=== PATIENT | male | born 1945 | race Two or more races ===

== ENCOUNTER 2018-02-05 22:33 | Inpatient (IN) | payer MEDICARE, MEDICAID ==
[~2018-02-05] VITALS: Ht 378.5 cm; Wt 64.0 kg
--- NOTE | 2018-02-05 23:44 | NUR ---
SUSHIL 204-1
[2018-02-06] VITALS (27 sets, daily range): BP systolic 53–163; BP diastolic 26–131
--- NOTE | 2018-02-06 00:39 | NUR ---
PT EMERALD "FROM [facility] HERE FOR PSYCH EVL.. BIT A STAFF MEMBER" PT AO HX DEMENTIA. RR EVEN AND UNLABORED. NO SOB NOTED. NAD NOTED. NO NVD AT THIS TIME. PT GOWNED AND PLACED ON MONITOR WAITING FOR MD OLIVA.
[2018-02-06 01:12] LABS: BASOPHILS % (AUTO) 0.5 % (0.0-2.0); EOSINOPHILS % (AUTO) 1.5 % (0.0-6.0); HEMATOCRIT 41 % (39-51); HEMOGLOBIN 13.7 g/dL (13.5-17.5); LYMPHOCYTES # (AUTO) 1.2 /CMM (0.8-4.8); LYMPHOCYTES % (AUTO) 24.9 % (20.0-44.0); MEAN CORPUSCULAR HGB CONC 33 g/dl (31.0-36.0); MEAN CORPUSCULAR VOLUME 97 fL (80-96); MONOCYTES # (AUTO) 0.4 /CMM (0.1-1.30); MONOCYTES % (AUTO) 7.4 % (2.0-12.0); NEUTROPHILS # (AUTO) 3.3 /CMM (1.8-8.9); NEUTROPHILS % (AUTO) 65.7 % (43.0-81.0); PLATELET COUNT (AUTO) 285 /CMM (150-450); RDW COEFFICIENT OF VARIATION 13.9 (11.5-15.0); RED BLOOD CELL COUNT(AUTO) 4.26 MIL/uL (4.5-6.0)
[2018-02-06 01:23] LABS: CALCIUM, SERUM 8.4 mg/dL (8.5-10.1); CARBON DIOXIDE 25 mmol/L (21-32); CHLORIDE 106 mmol/L (98-107); GLUCOSE 101 mg/dL (74-106); POTASSIUM 3.8 mmol/L (3.5-5.1); SODIUM SERUM 141 mmol/L (136-145); UREA NITROGEN, BLOOD 20 mg/dL (7-18)
[2018-02-06 01:29] LABS: ALANINE AMINOTRANSFERASE 19 U/L (12-78); ALBUMIN 3.2 g/dL (3.4-5.0); ALCOHOL, BLOOD < 3 mg/dL (0-0); ALKALINE PHOSPHATASE 52 U/L (46-116); ASPARTATE AMINOTRANSFERASE 11 U/L (15-37); BILIRUBIN,DIRECT 0.1 mg/dL (0.0-0.2); BILIRUBIN,TOTAL 0.4 mg/dL (0.2-1.0); TOTAL PROTEIN, SERUM 6.9 g/dL (6.4-8.2)
[2018-02-06 01:31] LABS: ACETAMINOPHEN 0 ug/ml (10-30); SALICYLATE 0.6 mg/dL (2.8-20.0)
--- NOTE | 2018-02-06 01:39 | NUR ---
PT TO CT.
[2018-02-06] MEDS ORDERED: ONDANSETRON HCL/PF 4 MG/2 ML VIAL IVP PRN (05:30)
--- NOTE | 2018-02-06 05:32 | NUR ---
REFER TO PAPER CHARTING. PT TRANSFERRED TO ICU 260 PER ACLS PROTOCOL. ADMITTED UNDER FOLLOW UP REP MELISSA FOR SUBARACHNOID HEMORRHAGE. DR. ZEE ON BOARD.
[2018-02-06] MEDS: IV NS 0.9% 1,000 ML IV PRN ×2 (06:19→21:28)
[2018-02-06] MEDS ORDERED: IV NS 0.9% 1,000 ML BAG IV PRN (06:30)
[2018-02-06] MEDS ORDERED: OLAN2.5T3 PO (07:53)
[2018-02-06] MEDS ORDERED: AMIO200T4 PO (07:53)
[2018-02-06] MEDS ORDERED: CLOP75TA15 PO (07:53)
[2018-02-06] MEDS ORDERED: DONE10TA44 PO (07:53)
[2018-02-06] MEDS ORDERED: BISO5TAB2 PO (07:53)
[2018-02-06] MEDS ORDERED: MULT-447 PO (07:53)
[2018-02-06] MEDS ORDERED: IPRA3AMP23 IH ×2 (07:53)
[2018-02-06] MEDS: PANTOPRAZOLE 40 MG VIAL IV SCH (08:42)
[2018-02-06] MEDS ORDERED: IOHEXOL-350 100 ML VIAL IV ONE (13:15)
--- NOTE | 2018-02-06 18:27 | NUR ---
RN CLOSING NOTES: PT TOLERATED PUREED HONEY THICK LIQUID DIET AND ABLE TO FEED SELF BUT NEEDS TO BE CONSTANTLY REMINDED TO SLOW DOWN. PT WAS CALM AND SLIGHTLY COOPERATIVE WHEN DAUGHTER WAS AT THE BEDSIDE UNTIL ABOUT 1700 WHEN HE BECAME AGITATED. PT AT THE MOMENT IS VERY RESTLESS AND WANTS TO GET OOB. PT ASSISTED TO TOILET, WALKED WITH 2 PEOPLE ASSIST, HAD BM AND VOIDED. BILATERAL WRIST RESTRAINTS RE INITIATED. BED LOW AND LOCKED. CALL LIGHT WITHIN REACHED. WILL CONTINUE TO MONITOR.
[2018-02-06] MEDS: LORAZEPAM INJ 2 MG/ML VIAL IV PRN (18:45)
[2018-02-07] VITALS (32 sets, daily range): BP systolic 84–159; BP diastolic 50–110
[2018-02-07] MEDS: LORAZEPAM INJ 2 MG/ML VIAL IV PRN ×2 (01:58→20:36)
[2018-02-07 04:28] LABS: BASOPHILS % (AUTO) 0.5 % (0.0-2.0); EOSINOPHILS % (AUTO) 1.9 % (0.0-6.0); HEMATOCRIT 43 % (39-51); HEMOGLOBIN 14.5 g/dL (13.5-17.5); LYMPHOCYTES # (AUTO) 1.5 /CMM (0.8-4.8); LYMPHOCYTES % (AUTO) 20.9 % (20.0-44.0); MEAN CORPUSCULAR HGB CONC 34 g/dl (31.0-36.0); MEAN CORPUSCULAR VOLUME 96 fL (80-96); MONOCYTES # (AUTO) 0.5 /CMM (0.1-1.30); MONOCYTES % (AUTO) 6.4 % (2.0-12.0); NEUTROPHILS # (AUTO) 5.1 /CMM (1.8-8.9); NEUTROPHILS % (AUTO) 70.3 % (43.0-81.0); PLATELET COUNT (AUTO) 266 /CMM (150-450); RDW COEFFICIENT OF VARIATION 13.9 (11.5-15.0); RED BLOOD CELL COUNT(AUTO) 4.47 MIL/uL (4.5-6.0); WHITE BLOOD COUNT (AUTO) 7.3 K/uL (4.3-11.0)
[2018-02-07 04:52] LABS: ALANINE AMINOTRANSFERASE 19 U/L (12-78); ALBUMIN 3.1 g/dL (3.4-5.0); ALKALINE PHOSPHATASE 51 U/L (46-116); ASPARTATE AMINOTRANSFERASE 12 U/L (15-37); BILIRUBIN,TOTAL 0.7 mg/dL (0.2-1.0); CALCIUM, SERUM 8.4 mg/dL (8.5-10.1); CARBON DIOXIDE 26 mmol/L (21-32); CHLORIDE 107 mmol/L (98-107); GLUCOSE 97 mg/dL (74-106); MAGNESIUM 1.9 mg/dL (1.8-2.4); PHOSPHORUS 3.1 mg/dL (2.5-4.9); SODIUM SERUM 142 mmol/L (136-145); TOTAL PROTEIN, SERUM 6.4 g/dL (6.4-8.2); UREA NITROGEN, BLOOD 11 mg/dL (7-18)
[2018-02-07 04:55] LABS: CHOLESTEROL 133 mg/dL (<200); HDL CHOLESTEROL 44 mg/dL (40-60); LDL 84 mg/dL (0-99); TRIGLYCERIDES 43 mg/dL (30-150)
[2018-02-07] MEDS: DIGOXIN INJ 0.5 MG/2 ML AMPUL IV SCH ×3 (06:16→17:35)
--- NOTE | 2018-02-07 06:41 | NUR ---
RN NOTE PT REMAINS IN NO ACUTE DISTRESS IN BED. PT DID NOT HAVE ANY SIGNIFICANT CHANGE IN CONDITION DURING SHIFT. FREQUENT NEURO CHECKS PERFORMED WITH NO CHANGE. PT CONTINUES TO BE IN CONTROLLED AFIB @ 80-90. ALL NEEDS MET, ALL ORDERS CARRIED OUT. WILL ENDORSE CARE TO AM RN FOR CONTINUITY OF CARE.
--- NOTE | 2018-02-07 07:12 | NUR ---
RN INITIAL NOTES: REC'D PT ASLEEP ON BED, EASILY AROUSABLE, A/OX 1, NOT IN ANY DISTRESS. ON ROOM AIR, NO SOB. ON TELEMONITOR, CONTROLLED AFIB. HAS 2 IV LINE ACCESS: R AC G20 & LFA G20, BOTH PATENT & INTACT W/ NO S/SX OF INFECTION. HAS B SOFT WRIST RESTRAINTS ON D/T RESTLESSNESS. PROVIDED COMFORT & SAFETY ENVIRONMENT. BED KEPT LOW & IN LOCKED POS. CALL LIGHT PLACED W/IN REACH. WILL CONTINUE TO MONITOR & ATTEND PT NEEDS. WILL REORIENT PT.
[2018-02-07] MEDS: DILTIAZEM HCL CD 240 MG PO SCH (08:12)
[2018-02-07] MEDS: PANTOPRAZOLE 40 MG VIAL IV SCH (08:12)
--- NOTE | 2018-02-07 08:30 | NUR ---
RN NOTES: PT SEEN & EXAMINED BY DR. BLACKWOOD. 0930h PT SEEN & EXAMINED BY DR. LESLIE.
--- NOTE | 2018-02-07 10:39 | NUR ---
RN NOTES: PT'S DAUGHTER CAME & ABLE TO ASSIST PT W/ ADLS. PT WAS NOT COMBATIVE WHILE DTR AT BEDSIDE. PT ABLE TO AMBULATE W/ ASSISTANCE
--- NOTE | 2018-02-07 11:11 | NUR ---
RN NOTES: PT WAS SEEN BY COMPOSITION ROLL MAKER AND CUTTER ES, WAS ABLE TO SPOKE W/ PT DTR EVELYN AT BEDSIDE.
[2018-02-07] MEDS: IV NS 0.9% 1,000 ML IV PRN (11:22)
--- NOTE | 2018-02-07 12:59 | NUR ---
RN NOTES: PT SEEN BY DR. BLACKWOOD, ALL CONCERNS OF THE DAUGHTER WAS ANSWERED BY .
[2018-02-07] MEDS: busPIRone 5 MG TABLET PO SCH (17:56)
--- NOTE | 2018-02-07 18:58 | NUR ---
RN NOTES: PT TRANSFERRED VIA BED TO MS 115/1 ORDERED ACCOMPANIED BY 2 RN. PT DOESN'T HAVE ANY PERSONAL BELONGINGS. REPORT GIVEN TO ADIEL JETT. NEW IV LINE INSERTED ON RFA G20, PATENT & INTACT W/ NO S/SX OF INFECTION/INFILTRATION NOTED. LEFT VM TO DTR EVELYN RE: TRANSFER.
--- NOTE | 2018-02-07 19:00 | NUR ---
RN NOTE RECEIVED REPORT FROM [place] ICU, RECEIVED PATIENT ASLEEP, CALM AND COLLECTIVE. BREATHING EVEN AND UNLABORED WITH NO DISTRESS NOTED. IV SITE INTACT AND PATENT RUNNING NS 75@ML/HR, WILL ENDORSE TO NEXT SHIFT TO CONTINUE CONTINUITY OF CARE.
--- NOTE | 2018-02-07 19:55 | NUR ---
RN OPENING NOTES RECEIVED REPORT FROM ADIEL JETT. PATIENT A/A/O X1, [place]-SPEAKING BUT ABLE TO MAKE SOME NEEDS KNOWN & STATE PAIN. BREATHING EVEN & UNLABORED, TOLERATING ROOM AIR. SKIN WARM, DRY & INTACT W/ PULSES PRESENT. RIGHT FA IV #20 INTACT & PATENT W/ DRESSING CDI & IVF NS INFUSING WELL @ 75 ML/HR. DENIES ANY PAIN OR DISCOMFORT @ THIS TIME. SAFETY MEASURES MAINTAINED W/ SITTER @ BEDSIDE. PATIENT RESTING COMFORTABLY IN BED. WILL CONTINUE TO MONITOR.
[2018-02-08] MEDS: IV NS 0.9% 1,000 ML IV PRN ×2 (03:01→16:24)
[2018-02-08 04:00] VITALS: BP 145/93
--- NOTE | 2018-02-08 07:15 | NUR ---
MS/RN INITIAL NOTES RECEIVED PT IN BED ASLEEP, EASILY AROUSABLE. ON ROOM AIR, NO SOB AND NO SIGNS OF DISTRESS. WITH ONGOING IVF NS @ 75 ML/HR INFUSING WELL ON RFA, NO SIGNS OF INFECTION ON IV SITE. WITH KOURTNEY SOFT WRIST RESTRAINTS D/T RESTLESSNESS. PROVIDED COMFORT & SAFETY ENVIRONMENT. BED KEPT LOW & IN LOCKED POSITION, CALL LIGHT PLACED W/IN REACH. ON 1:1 SITTER, WILL CONTINUE TO MONITOR
[2018-02-08 08:00] VITALS: BP 131/92
[2018-02-08] MEDS: PANTOPRAZOLE 40 MG VIAL IV SCH (08:52)
[2018-02-08] MEDS: DILTIAZEM HCL CD 240 MG PO SCH (08:53)
[2018-02-08] MEDS: busPIRone 5 MG TABLET PO SCH ×3 (08:53→17:13)
--- NOTE | 2018-02-08 12:16 | NUR ---
RN NOTES SEEN AND EXAMINED BY DR. MCKOY, PER OK TO BE D/C IF MEDICALLY STABLE
[2018-02-08 16:00] VITALS: BP 113/82
--- NOTE | 2018-02-08 17:30 | NUR ---
RN NOTES PT'S DTR AT BEDSIDE AND ASSISTED PT W/ ADLS. PT WAS NOT COMBATIVE WHILE DTR AT BEDSIDE. PT ABLE TO AMBULATE W/ ASSISTANCE
--- NOTE | 2018-02-08 19:16 | NUR ---
MS/RN CLOSING NOTES PT REMAINED STABLE, NO ACUTE DISTRESS NOTES, NO C/O PAIN, SAFETY MEASURES OBSERVED AT ALL TIMES, ALL NEEDS ATTENDED, ENDORSED TO PM SHIFT NURSE FOR BRAULIO
--- NOTE | 2018-02-08 19:50 | NUR ---
RN OPENING NOTES RECEIVED REPORT FROM FRANCES JETT. PATIENT A/A/O X1, [place]-SPEAKING BUT ABLE TO MAKE SOME NEEDS KNOWN & STATE PAIN. BREATHING EVEN & UNLABORED, TOLERATING ROOM AIR. SKIN WARM, DRY & INTACT W/ PULSES PRESENT. RIGHT FA IV #20 INTACT & PATENT W/ DRESSING CDI & IVF NS INFUSING WELL @ 75 ML/HR. DENIES ANY PAIN OR DISCOMFORT @ THIS TIME. SAFETY MEASURES MAINTAINED W/ SITTER @ BEDSIDE D/T RESTLESSNESS. WILL CONTINUE TO MONITOR.
[2018-02-08 20:00] VITALS: BP 106/72
[2018-02-09] MEDS: LORAZEPAM INJ 2 MG/ML VIAL IV PRN (00:28)
[2018-02-09 04:00] VITALS: BP 147/89
--- NOTE | 2018-02-09 07:10 | NUR ---
MS/RN INITIAL NOTES RECEIVED PT IN BED, ASLEEP BUT AROUSABLE TO NAME, IN NO SIGNS OF RESPIRATORY DISTRESS, NO C/O PAIN AT THIS TIME. SKIN IS INTACT, WITH ONGOING IVF OF NS AT 75 ML/HR INFUSING WELL ON RFA, NO SIGNS OF INFECTION/INFILTRATION ON IV SITE. SAFETY MEASURES OBSERVED. ON 1:1 SITTER. WILL CONT TO MONITOR
[2018-02-09 07:12] VITALS: BP 147/89
[2018-02-09 07:13] VITALS: BP 105/67
[2018-02-09 08:00] VITALS: BP 100/48
[2018-02-09] MEDS: PANTOPRAZOLE 40 MG VIAL IV SCH (08:01)
[2018-02-09] MEDS: DILTIAZEM HCL CD 240 MG PO SCH (08:01)
[2018-02-09] MEDS: busPIRone 5 MG TABLET PO SCH ×3 (08:02→16:59)
[2018-02-09] MEDS: IV NS 0.9% 1,000 ML IV PRN (08:26)
[2018-02-09] MEDS ORDERED: BUSP5TAB3 PO (11:17)
[2018-02-09] MEDS ORDERED: DILT240C64 PO (11:17)
--- NOTE | 2018-02-09 13:00 | NUR ---
RN NOTES SPOKE WITH CAMRYN ZALDIVAR ABOUT D/C BACK TO SNF, CAMRYN SAID STILL WAITING FOR [facility] TO CALL BACK FOR ROOM NOTIFIED DTGreyson RIVAS RE: PT D/C TO [facility]
--- NOTE | 2018-02-09 14:39 | NUR ---
RN NOTES CALLED JIM CARRERA AND GAVE REPORT TO MALIHA WALKER
[2018-02-09 16:00] VITALS: BP 113/70
--- NOTE | 2018-02-09 18:16 | NUR ---
RN D/C NOTES D/C PT TO SNF ( [facility]) IN [facility], TRANSPORTED BY 2 EMT (AARON), IN STABLE CONDITION. DTR EVELYN AT BEDSIDE. IN NO ACUTE DISTRESS. NO C/O PAIN. IV LINES D/C, IV CATH INTACT, WITH NO SIGNS OF BLEEDING AND INFECTION. PRESSURE DRESSING APPLIED. SAFETY MEASURES OBSERVED AT ALL TIMES. ALL NEEDS ATTENDED.D/C
== END 2018-02-09 18:00 | DRG 64 ==
LOC: ER 22:34 → GPSOV2 02-06 01:26 → ICU 02-06 05:29 → MEDSG1 02-07 18:46
PROVIDERS: ADMIT Nurse Practitioner Acute Care; ATTEND Nurse Practitioner Acute Care
DX: I60.9 Nontraumatic subarachnoid hemorrhage, unspecified (principal); G93.40 Encephalopathy, unspecified; D68.59 Other primary thrombophilia; F02.81 Dementia in other diseases classified elsewhere, unspecified severity, with behavioral disturbance; F05 Delirium due to known physiological condition; E86.0 Dehydration; I48.91 Unspecified atrial fibrillation; J45.909 Unspecified asthma, uncomplicated; K21.9 Gastro-esophageal reflux disease without esophagitis; G30.9 Alzheimer's disease, unspecified; I10 Essential (primary) hypertension; Z73.6 Limitation of activities due to disability; Z66 Do not resuscitate; I11.0 Hypertensive heart disease with heart failure; I50.9 Heart failure, unspecified; F29 Unspecified psychosis not due to a substance or known physiological condition
CPT/HCPCS: 36415; 70450-TC; 70496-TC; 71045-TC; 80048-TC; 80053-TC; 80061-TC; 80076-TC; 80162-TC; 83735-TC; 84100-TC; 85025-TC; 87081-TC; 92611-TC; 93307-TC; A4606; C9113; G0480; J1160; J2060; J7030; Q9967; Z7610

== ENCOUNTER 2018-03-23 14:52 | Inpatient (IN) | payer MEDICARE, MEDICAID ==
[~2018-03-23] VITALS: Ht 172.7 cm; Wt 64.0 kg
[~2018-03-23 14:52] MED LIST: BISO5TAB2 PO; BUSP5TAB3 PO; DILT240C64 PO; DONE10TA44 PO; IPRA3AMP23 IH; MULT-447 PO
--- NOTE | 2018-03-23 15:00 | NUR ---
EMERALD FROM [facility] FOR PSYCH EVAL, PT WAS STRIKING OUT AT STAFF. NOTED RESTLESS, NOT FOLLOWING COMMANDS, NONVERBAL. SEEN BY MD FOR EVAL. VSS. SAFETY AND COMFORT MEASURES PROVIDED. WILL MONITOR.
--- NOTE | 2018-03-23 15:30 | NUR ---
PT KEEPS ON GETTING OUT OF BED, ORDERS CARRIED OUT FOR RESTRAINTS. PT SAFELY ASSISTED TO THE BED WITH RESTRAINTS.
--- NOTE | 2018-03-23 15:39 | NUR ---
ASSIGNED BED 214B
[2018-03-23] MEDS ORDERED: BUSP5TAB3 PO (16:24)
[2018-03-23] MEDS ORDERED: CLOP75TA15 PO (16:24)
[2018-03-23] MEDS ORDERED: RANI300T4 PO (16:24)
[2018-03-23] MEDS ORDERED: PARO10TA86 PO (16:24)
[2018-03-23] MEDS ORDERED: AMIO200T4 PO (16:24)
[2018-03-23] MEDS ORDERED: DILT240C64 PO (16:24)
[2018-03-23] MEDS ORDERED: FURO-145 PO (16:24)
[2018-03-23] MEDS ORDERED: CHOL100044 PO (16:24)
[2018-03-23] MEDS ORDERED: GABA-534 PO (16:24)
[2018-03-23] MEDS ORDERED: LORA0.5T PO (16:24)
--- NOTE | 2018-03-23 16:50 | NUR ---
PT CONTINUES TO GET OUT OF BED. NOTED TO TRY TO BITE AND KICK WHEN ASSISTED BACK TO BED. RESTRAINTS SAFELY KEPT IN PLACE.
[2018-03-23] MEDS ORDERED: DILTIAZEM HCL 50 MG IV IV ONE ×2 (17:00→19:30)
[2018-03-23 17:03] LABS: BASOPHILS # (AUTO) 0.2 /CMM (0.0-0.2); BASOPHILS % (AUTO) 2.7 % (0.0-2.0); EOSINOPHILS % (AUTO) 0.3 % (0.0-6.0); HEMATOCRIT 45 % (39-51); HEMOGLOBIN 14.6 g/dL (13.5-17.5); LYMPHOCYTES # (AUTO) 1.4 /CMM (0.8-4.8); LYMPHOCYTES % (AUTO) 18.8 % (20.0-44.0); MEAN CORPUSCULAR HEMOGLOBIN 30 PG (26.0-33.0); MEAN CORPUSCULAR HGB CONC 32 g/dl (31.0-36.0); MEAN CORPUSCULAR VOLUME 93 fL (80-96); MONOCYTES # (AUTO) 0.6 /CMM (0.1-1.30); MONOCYTES % (AUTO) 7.5 % (2.0-12.0); NEUTROPHILS # (AUTO) 5.4 /CMM (1.8-8.9); NEUTROPHILS % (AUTO) 70.7 % (43.0-81.0); PLATELET COUNT (AUTO) 314 /CMM (150-450); RDW COEFFICIENT OF VARIATION 13.2 (11.5-15.0); RED BLOOD CELL COUNT(AUTO) 4.88 MIL/uL (4.5-6.0); WHITE BLOOD COUNT (AUTO) 7.6 K/uL (4.3-11.0)
[2018-03-23 17:08] LABS: APPEARANCE,URINE Clear (CLEAR); BILIRUBIN,URINE SMALL (NEGATIVE); BLOOD, URINE Large Ery/uL (NEGATIVE); COLOR,URINE Dark (YELLOW); KETONES,URINE Negative (NEGATIVE); LEUKOCYTE ESTERASE ,URINE Negative (NEGATIVE); NITRITE, URINE Negative (NEGATIVE); PH,URINE 5.5 (5.0-8.0); PROTEIN,URINE >=300 mg/dl (NEGATIVE); UGLUCOSE Negative (NEGATIVE)
[2018-03-23 17:17] LABS: CALCIUM, SERUM 9.2 mg/dL (8.5-10.1); CARBON DIOXIDE 26 mmol/L (21-32); CHLORIDE 106 mmol/L (98-107); CREATININE 0.8 mg/dL (0.6-1.3); GLUCOSE 115 mg/dL (74-106); POTASSIUM 4.3 mmol/L (3.5-5.1); SODIUM SERUM 138 mmol/L (136-145); UREA NITROGEN, BLOOD 19 mg/dL (7-18)
[2018-03-23] MEDS ORDERED: DILTIAZEM HCL 25 MG IV ONE ×2 (17:19→19:35)
[2018-03-23 17:23] LABS: ALANINE AMINOTRANSFERASE 26 U/L (12-78); ALBUMIN 3.2 g/dL (3.4-5.0); ALCOHOL, BLOOD < 3 mg/dL (0-0); ALKALINE PHOSPHATASE 60 U/L (46-116); ASPARTATE AMINOTRANSFERASE 18 U/L (15-37); BILIRUBIN,DIRECT 0.1 mg/dL (0.0-0.2); BILIRUBIN,TOTAL 0.4 mg/dL (0.2-1.0); TOTAL PROTEIN, SERUM 7.5 g/dL (6.4-8.2)
[2018-03-23 17:24] LABS: ACETAMINOPHEN < 2 ug/ml (10-30)
[2018-03-23 17:25] LABS: TROPONIN I < 0.017 ng/mL (0.00-0.056)
[2018-03-23 17:33] LABS: BACTERIA,URINE Rare /HPF (None Seen); RBC,URINE 81-100 /HPF (0-2); SQUAMOUS EPITHELIAL CELL,UR Few /HPF (None Seen); WBC,URINE 0-2 /HPF (0-3)
[2018-03-23 17:42] LABS: INR 0.96 (0.85-1.15)
[2018-03-23 17:52] LABS: THYROID STIMULATING HORMONE 1.589 uIU/mL (0.358-3.74)
--- NOTE | 2018-03-23 18:18 | NUR ---
[facility] CALLED [phone], MESFIN ZUÑIGA DNP RAND CEMENTER.
--- NOTE | 2018-03-23 19:26 | NUR ---
ASSUMED CARE. RECEIVED REPORT FROM AM SHIFT MALIHA ROTHMAN. PT CONFUSED, NO ACUTE DISTRESS NOTED, RESP EVEN AND UNLABORED. PT RESTLESS, UNCOOPERATIVE AT THIS TIME. NOTED PT HR-130'S A'FIB. ER MD MADE AWARE. WILL CONTINUE TO MONITOR PT CLOSELY.
--- NOTE | 2018-03-23 19:37 | NUR ---
RN AT BEDSIDE TO MEDICATE PT.
[2018-03-23] MEDS ORDERED: LORAZEPAM INJ 2 MG/ML VIAL ONE ×2 (19:41→21:27)
--- NOTE | 2018-03-23 19:53 | NUR ---
PT MEDICATED BY RN PER ER MD ORDER.
[2018-03-23] MEDS ORDERED: LORAZEPAM INJ 2 MG/ML VIAL IV ONE ×2 (20:00→20:30)
--- NOTE | 2018-03-23 20:46 | NUR ---
PT BACK FROM RADIOLOGY PENDING CT RESULT.
--- NOTE | 2018-03-23 20:53 | NUR ---
PT CALM, ASLEEP, EASILY AROUSABLE, NO ACUTE DISTRESS NOTED, RESP EVEN AND UNLABORED. WILL CONTINUE TO MONITOR PT CLOSELY.
--- NOTE | 2018-03-23 21:16 | NUR ---
REPORT CALLED TO TELE 1 MALIHA GOSS. WILL TRANSPORT PT VIA ACLS PROTOCOL.
[2018-03-23 22:00] VITALS: BP 138/94
--- NOTE | 2018-03-23 22:00 | NUR ---
BRAYDEN RN NOTES, received pts and report with er nurse ED ADMITTED A 73 Y/0 MALE with admitting dx of rapid afib. LETHARGIC AND CONFUSED AT THIS TIME , NO SOB NO DISTRESS NOTED , ON 2LITERS OF 02 VIA NASAL CANULA SATING 96%[facility] , admission routine care rendered , admission order noted and carried out .all needs attended too, due meds given as ordered call light within reach .with iv heplock on lfa g#20 intact and patent.head to toe body assessment done , will continue to monitor pts.
[2018-03-23] MEDS ORDERED: Z GUARD REMEDY 2 OZ OINT TP PRN (23:30)
[2018-03-23] MEDS ORDERED: MAG HYDROX/AL HYDROX/SIMETH 30 ML UDC PO PRN (23:30)
[2018-03-23] MEDS ORDERED: ONDANSETRON HCL/PF 4 MG/2 ML VIAL IVP PRN (23:30)
[2018-03-23] MEDS ORDERED: HYDROCODONE/APAP 5/325MG 1 EACH TABLET PO PRN (23:30)
[2018-03-23] MEDS ORDERED: ACETAMINOPHEN 325 MG TABLET PO PRN (23:30)
[2018-03-23] MEDS: DONEPEZIL 5 MG TABLET PO SCH (23:30)
[2018-03-24] VITALS: BP 126/91
[2018-03-24] MEDS ORDERED: ENOXAPARIN SODIUM 40 MG/0.4 ML DISP.SYRIN SQ SCH ×2 (01:00→01:30)
[2018-03-24] MEDS ORDERED: SALINE NASAL SPRAY 0.65% 1 BOTTLE BOTTLE NS PRN (01:00)
--- NOTE | 2018-03-24 01:15 | NUR ---
purnima rn notes pts noted with agitation ativan 0.5 mg tab via po given as ordered wth effect.
[2018-03-24] MEDS: DONEPEZIL 5 MG TABLET PO SCH ×2 (01:16→21:17)
[2018-03-24] MEDS: LORAZEPAM 0.5 MG TABLET PO PRN ×2 (01:17→20:30)
[2018-03-24 04:00] VITALS: BP 137/91
[2018-03-24 06:24] LABS: BASOPHILS % (AUTO) 0.4 % (0.0-2.0); EOSINOPHILS % (AUTO) 0.7 % (0.0-6.0); HEMATOCRIT 42 % (39-51); HEMOGLOBIN 13.9 g/dL (13.5-17.5); LYMPHOCYTES # (AUTO) 1.7 /CMM (0.8-4.8); LYMPHOCYTES % (AUTO) 27.4 % (20.0-44.0); MEAN CORPUSCULAR HEMOGLOBIN 32 PG (26.0-33.0); MEAN CORPUSCULAR HGB CONC 33 g/dl (31.0-36.0); MEAN CORPUSCULAR VOLUME 96 fL (80-96); MONOCYTES # (AUTO) 0.5 /CMM (0.1-1.30); MONOCYTES % (AUTO) 7.4 % (2.0-12.0); NEUTROPHILS # (AUTO) 3.9 /CMM (1.8-8.9); NEUTROPHILS % (AUTO) 64.1 % (43.0-81.0); PLATELET COUNT (AUTO) 290 /CMM (150-450); RDW COEFFICIENT OF VARIATION 13.7 (11.5-15.0); RED BLOOD CELL COUNT(AUTO) 4.41 MIL/uL (4.5-6.0); WHITE BLOOD COUNT (AUTO) 6.2 K/uL (4.3-11.0)
[2018-03-24 06:40] LABS: CHOLESTEROL 135 mg/dL (<200); HDL CHOLESTEROL 37 mg/dL (40-60); LDL 89 mg/dL (0-99); TRIGLYCERIDES 51 mg/dL (30-150)
[2018-03-24 06:49] LABS: CALCIUM, SERUM 8.6 mg/dL (8.5-10.1); CARBON DIOXIDE 26 mmol/L (21-32); CHLORIDE 108 mmol/L (98-107); CREATININE 0.7 mg/dL (0.6-1.3); GLUCOSE 92 mg/dL (74-106); MAGNESIUM 2.1 mg/dL (1.8-2.4); PHOSPHORUS 3.1 mg/dL (2.5-4.9); POTASSIUM 3.9 mmol/L (3.5-5.1); SODIUM SERUM 143 mmol/L (136-145); UREA NITROGEN, BLOOD 11 mg/dL (7-18)
--- NOTE | 2018-03-24 07:00 | NUR ---
RN NOTES RECEIVED PT ON BED, ALERT / CONFUSED, ON 2L O2 N/C ,RESPIRATION EVEN AND UNLABORED, NO SOB NOTED, ON TELE A.FIB HR IN 100'S , L FA IV SITE G 20 CLEAN AND DRY , SR UP x3, CALL LIGHT WITHIN EASY REACH, BED LOCKED AND IN LOWEST POSITION , CONTINUE TO MONITOR
--- NOTE | 2018-03-24 07:03 | NUR ---
purnima rn notes pts in bed awake and responsive , with episode of climbing out of bed , bilateral wrist restraint applied , as ordered, daughter boom made aware ,all needs attended too call light within reach ,pts still on tele afib on the monitor , will endorse to rn ameena for continuity of care.
[2018-03-24 08:00] VITALS: BP 150/99
[2018-03-24] MEDS: CHOLECALCIFEROL 1,000 UNIT TABLET (VIT D3) PO SCH ×3 (08:34→16:28)
[2018-03-24] MEDS: AMIODARONE HCL 200 MG TABLET PO SCH (08:34)
[2018-03-24] MEDS: MULTIVITAMINS,THERAGRAN 1 UDTAB TABLET PO SCH (08:34)
[2018-03-24] MEDS: DILTIAZEM HCL CD 240 MG PO SCH (08:34)
[2018-03-24] MEDS: BISOPROLOL FUMARATE 5 MG TABLET PO SCH (08:35)
[2018-03-24] MEDS: PAROXETINE HCL 10 MG TABLET PO SCH (08:35)
[2018-03-24] MEDS: busPIRone 5 MG TABLET PO SCH ×3 (08:35→16:28)
[2018-03-24] MEDS: GABAPENTIN 300 MG CAPSULE PO SCH ×3 (08:35→16:28)
[2018-03-24] MEDS: IV NS 0.9% 1,000 ML IV PRN ×2 (08:50→18:16)
[2018-03-24] MEDS ORDERED: FUROSEMIDE 20 MG TABLET PO SCH (09:00)
[2018-03-24] MEDS ORDERED: CLOPIDOGREL BISULFATE 75 MG TABLET PO SCH (09:00)
[2018-03-24 12:00] VITALS: BP 151/99
--- NOTE | 2018-03-24 12:00 | NUR ---
RN NOTES SUSHIL PSYCH NOTIFED REGARDING PSYCH CONSULT, FACE SHEET FAXED .
[2018-03-24 12:11] LABS: ABG BASE EXCESS 0.6 mmol/L; ABG OXYGEN SATURATION 97.5 % (92.0-98.5); ABG PCO2 33.5 mmHg (35.0-45.0); ABG PH 7.466 (7.350-7.450); ABG PO2 100.8 mmHg (75.0-100.0); AaDO2 59.3 mmHg; COHb 0.8 % (0.5-1.5); MetHb 0.6 % (0.0-1.5); O2Hb 96.1 % (94.0-97.0); SITE, ABG Right Radial; VENT MODE, BG NASAL CANNULA
[2018-03-24 16:00] VITALS: BP 104/71
--- NOTE | 2018-03-24 18:40 | NUR ---
RN NOTES PT STILL CONFUSED AND COMBATIVE, NS ST 125CC/HR RUNNING VIA L FA IV SITE , NO ACUTE DISTRESS NOTED ON THIS SHIFT , SR UP x2, CALL LIGHT WITHIN EASY REACH, WILL ENDOSE TO DATA SYSTEMS ANALYST NURSE FOR BRAULIO .
[2018-03-24 20:00] VITALS: BP 116/98
--- NOTE | 2018-03-24 20:00 | NUR ---
BRAYDEN RN NOTES RECEIVED PTS IN BED AWAKE , STILL AGITATED AND COMBATIVE ,SPITTING , ON TELE MONITOR AFIB HR 133 PTS AT THIS TIME IS AGITATED , DUE PRN MEDS GIVEN ORDERED BED BATH GIVEN , KEPT PTS COMFORTABLE, V/S STABLE AFEBRILE,NO SOB NO DISTRESS NOTED , ON BILATERAL SOFT WRIST RESTRAINT TO PREVENT PULLING INVASIVE TUBING , PTS ON 1 LITER OF 02 VIA NC SATING 97% ALL NEEDS ATTENDED TOO CALL LIGHT WITHIN REACH WILL CONTINUE TO MONITOR PTS.
--- NOTE | 2018-03-24 20:30 | NUR ---
BRAYDEN RN NOTES PTS REMAINS ON IVF OF NSAT 125CC/HR INFUSING WELL
[2018-03-24] MEDS: ENOXAPARIN SODIUM 40 MG/0.4 ML DISP.SYRIN SQ SCH (21:15)
[2018-03-25] VITALS (7 sets, daily range): BP systolic 109–153; BP diastolic 67–99
[2018-03-25] MEDS: LORAZEPAM 0.5 MG TABLET PO PRN (04:02)
[2018-03-25] MEDS: IV NS 0.9% 1,000 ML IV PRN (04:03)
--- NOTE | 2018-03-25 06:19 | NUR ---
BRAYDEN RN NOTES PTS REMAIN IN BED ,ON BILATERAL SOFT WRIST RESTRAINT , TO PREVENT FROM PULLING INVASIVE TUBINGS ,ON IV FLUIDS NS AT 75CC/HR INFUSING WELL , V/S STABLE AFEBRILE, WELL INDORSE TO RN DAY SHIFT FOR CONTINUITY OF CARE. Addendum: 03/25/18 at 0637 by ANA PAULA KELLER RN PTS IS ON IVF NS AT 125CC/HR NOT NS 75CC/HR
--- NOTE | 2018-03-25 07:10 | NUR ---
RN INITIAL NOTES: REC'D PT ASLEEP ON BED, EASILY AROUSABLE, NOT IN ANY DISTRESS, A/O X 1 W/ CONFUSION. ON NC/1LPM, NO SOB. ON TELEMONITOR, AFIB 90'S. HAS L AC G20, NS X 125 CC/HR INFUSING WELL, NO S/SX OF INFECTION/INFILTRATION NOTED. HAS BILATERAL SOFT WRIST RESTRAINTS D/T EPISODE OF AGGRESSION. PROVIDED COMFORT & SAFETY ENVIRONMENT. BED KEPT LOW & IN LOCKED POS. CALL LIGHT PLACED W/IN REACH. WILL CONT TO MONITOR & ATTEND PT NEEDS.
[2018-03-25 07:29] LABS: BASOPHILS % (AUTO) 0.4 % (0.0-2.0); EOSINOPHILS % (AUTO) 0.4 % (0.0-6.0); HEMATOCRIT 44 % (39-51); HEMOGLOBIN 14.2 g/dL (13.5-17.5); LYMPHOCYTES # (AUTO) 2.2 /CMM (0.8-4.8); LYMPHOCYTES % (AUTO) 29.6 % (20.0-44.0); MEAN CORPUSCULAR HEMOGLOBIN 31 PG (26.0-33.0); MEAN CORPUSCULAR HGB CONC 33 g/dl (31.0-36.0); MEAN CORPUSCULAR VOLUME 95 fL (80-96); MONOCYTES # (AUTO) 0.5 /CMM (0.1-1.30); MONOCYTES % (AUTO) 6.9 % (2.0-12.0); NEUTROPHILS # (AUTO) 4.6 /CMM (1.8-8.9); NEUTROPHILS % (AUTO) 62.7 % (43.0-81.0); PLATELET COUNT (AUTO) 332 /CMM (150-450); RDW COEFFICIENT OF VARIATION 13.6 (11.5-15.0); RED BLOOD CELL COUNT(AUTO) 4.59 MIL/uL (4.5-6.0); WHITE BLOOD COUNT (AUTO) 7.4 K/uL (4.3-11.0)
[2018-03-25 07:51] LABS: ALANINE AMINOTRANSFERASE 25 U/L (12-78); ALBUMIN 3.1 g/dL (3.4-5.0); ALKALINE PHOSPHATASE 66 U/L (46-116); ASPARTATE AMINOTRANSFERASE 18 U/L (15-37); BILIRUBIN,TOTAL 0.6 mg/dL (0.2-1.0); CALCIUM, SERUM 8.9 mg/dL (8.5-10.1); CARBON DIOXIDE 28 mmol/L (21-32); CHLORIDE 106 mmol/L (98-107); CREATININE 0.9 mg/dL (0.6-1.3); GLUCOSE 88 mg/dL (74-106); SODIUM SERUM 143 mmol/L (136-145); TOTAL PROTEIN, SERUM 7.5 g/dL (6.4-8.2); UREA NITROGEN, BLOOD 11 mg/dL (7-18)
[2018-03-25] MEDS: busPIRone 5 MG TABLET PO SCH ×5 (08:20→17:06)
[2018-03-25] MEDS: AMIODARONE HCL 200 MG TABLET PO SCH ×2 (08:21→09:00)
[2018-03-25] MEDS: PAROXETINE HCL 10 MG TABLET PO SCH ×2 (08:21→09:00)
[2018-03-25] MEDS: BISOPROLOL FUMARATE 5 MG TABLET PO SCH ×2 (08:21→09:00)
[2018-03-25] MEDS: GABAPENTIN 300 MG CAPSULE PO SCH ×5 (08:21→17:06)
[2018-03-25] MEDS: DILTIAZEM HCL CD 240 MG PO SCH ×2 (08:21→09:00)
[2018-03-25] MEDS: CHOLECALCIFEROL 1,000 UNIT TABLET (VIT D3) PO SCH ×5 (08:21→17:06)
[2018-03-25] MEDS: MULTIVITAMINS,THERAGRAN 1 UDTAB TABLET PO SCH ×2 (08:21→09:00)
--- NOTE | 2018-03-25 08:37 | NUR ---
TRIED FEEDING PT AT THE SAME TIME GIVING MEDS BUT PT SPITTING OUT FOOD AND MEDS. BITING THE SPOON HARD AND KICKING THE STAFF. WILL TRY AGAIN LATER.
--- NOTE | 2018-03-25 10:54 | NUR ---
TRIED FEEDING & GIVING THE MEDICATIONS AGAIN TO THE PT. PT ATE THE PUDDING W/ SOME OF THE MEDS BUT COUGHED IT ALL OUT. PT REFUSED TO EAT.
--- NOTE | 2018-03-25 11:34 | NUR ---
PT SEEN & EXAMINED BY RANDI BROWN. MADE HIM AWARE RE: PT SPITTING OUT FOOD & MEDICATIONS. NNO AT THIS TIME. AWAITING PSYCH EVAL.
--- NOTE | 2018-03-25 12:30 | NUR ---
PT ATE SOME OF HIS LUNCH BUT HE SPITS OUT ALL HIS PO MEDS.
--- NOTE | 2018-03-25 13:06 | NUR ---
CALLED [employer] SPOKE W/ [place] & CONFIRMED THAT PT IS ON THE LIST FOR PYSCH CONSULT UNDER DR. KONG. AWAITING FOR .
--- NOTE | 2018-03-25 18:34 | NUR ---
RN CLOSING NOTES: NO ACUTE CHANGES NOTED W/IN SHIFT. PT TOLERATED ROOM AIR, NO SOB. ON TELEMONITOR, STILL CONTROLLED AFIB. L AC G20, NS X 125 CC/HR INFUSING WELL, KEPT PATENT & INTACT. STILL HAS BILATERAL SOFT WRIST RESTRAINTS D/T EPISODE OF WANTING TO GET OUT OF BED & AGGRESSION. PT ATE HIS DINNER AND TOOK HIS MEDS. KEPT WELL RESTED. NEEDS ATTENDED. BED KEPT LOW & IN LOCKED POS. CALL LIGHT PLACED W/IN REACH. WILL ENDORSE TO PM RN FOR BRAULIO.
--- NOTE | 2018-03-25 19:20 | NUR ---
VEGETABLE GRADER INITIAL NOTES, RECEIVED ON BED, SLEEPING AT THIS TIME BUT EASILY AROUSABLE, BREATHING EVEN AND UNLABORED, NO SOB/ ACUTE DISTRESS NOTED AT THIS TIME, AFIB 90'S IN TELEMONITOR, L AC G20, SL, NO S/SX OF INFECTION/INFILTRATION NOTED. ON BILATERAL SOFT WRIST RESTRAINTS D/T EPISODE OF AGGRESSION, NO EPISODES OF AGGRESSION/AGITATION NOTED AT THIS TIME, ALL NEEDS PROVIDED AND SAFETY ENVIRONMENT WELL, BED LOCKED AND IN LOW POSITION, CALL LIGHT PLACED W/I REACH, WILL CONT TO MONITOR CLOSELY.
[2018-03-25] MEDS: DONEPEZIL 5 MG TABLET PO SCH (21:17)
[2018-03-25] MEDS: ENOXAPARIN SODIUM 40 MG/0.4 ML DISP.SYRIN SQ SCH (21:18)
[2018-03-26] VITALS: BP 139/70
[2018-03-26 04:00] VITALS: BP 127/83
--- NOTE | 2018-03-26 06:50 | NUR ---
SAND TECHNOLOGIST CLOSING NOTES, PATIENT ON BED, SLEEPING AT THIS TIME BUT EASILY AROUSABLE, BREATHING EVEN AND UNLABORED, NO SOB/ ACUTE DISTRESS NOTED AT THIS TIME, AFIB 90'S IN TELEMONITOR, L AC G20, SL, NO S/SX OF INFECTION/INFILTRATION NOTED. ON BILATERAL SOFT WRIST RESTRAINTS D/T EPISODE OF AGGRESSION, ONE EPISODE OF AGGRESSION NOTED, REDIRECTION OF BEHAVIOR PROVIDED, ALL NEEDS PROVIDED AND SAFETY ENVIRONMENT AT ALL TIMES, BED LOCKED AND IN LOW POSITION, CALL LIGHT PLACED W/I REACH, REMAINED STABLE THROUGHOUT THE NIGHT, WILL ENDORSE CONTINUITY OF CARE TO ONCOMING NURSE.
--- NOTE | 2018-03-26 07:30 | NUR ---
SLAG WHEELER INITIAL NOTES RECEIVED PATIENT SLEEPING IN BED EASY TO AROUSE, NO SIGNS OF DISTRESS, ON 1L NC SATURATING 100% O2, ON BILATERAL RESTRAINTS DUE TO COMBATIVE, AND NONCOMPLIANT BEHAVIOR, ACCESSED RESTRAINTS PER PROTOCOL, ALL NEEDS ATTENDED TO, ON TELE MONITOR AFIB 83 HR, IN DIAPER, IV L AC 20G SL, CLEAN AND PATENT, BED IN LOW AND LOCKED POSITION, CALL LIGHT WITHIN REACH, WILL CONTINUE TO MONITOR.
[2018-03-26 08:00] VITALS: BP 130/74
[2018-03-26] MEDS: MULTIVITAMINS,THERAGRAN 1 UDTAB TABLET PO SCH (08:51)
[2018-03-26] MEDS: AMIODARONE HCL 200 MG TABLET PO SCH (08:51)
[2018-03-26] MEDS: busPIRone 5 MG TABLET PO SCH (08:51)
[2018-03-26] MEDS: GABAPENTIN 300 MG CAPSULE PO SCH ×3 (08:52→16:56)
[2018-03-26] MEDS: PAROXETINE HCL 10 MG TABLET PO SCH (08:52)
[2018-03-26] MEDS: CHOLECALCIFEROL 1,000 UNIT TABLET (VIT D3) PO SCH ×3 (08:52→16:56)
[2018-03-26] MEDS: DILTIAZEM HCL CD 240 MG PO SCH (08:53)
[2018-03-26] MEDS: BISOPROLOL FUMARATE 5 MG TABLET PO SCH (08:53)
--- NOTE | 2018-03-26 11:00 | NUR ---
DIRECTOR ONLINE MARKETING NOTES PATIENT SEEN BY DR. KONG PSYCHOLOGIST.
[2018-03-26 12:00] VITALS: BP 105/72
[2018-03-26 16:00] VITALS: BP 107/72
--- NOTE | 2018-03-26 18:43 | NUR ---
PROCESS DESIGN CHEMICAL ENGINEER END NOTES PATIENT RESTING IN BED, NO SIGNS OF DISTRESS, ALL NEEDS MET, WILL ENDORSE TO BUSINESS ADMINISTRATOR FOR CONTINUITY OF CARE
--- NOTE | 2018-03-26 19:35 | NUR ---
RN MS INITIAL NOTES, RECEIVED PATIENT IN BED, AWAKE AT THIS TIME, ALERT AND ORIENTED TO NAME, BREATHING EVEN AND UNLABORED, NO SOB/ ACUTE DISTRESS NOTED AT THIS TIME, AFIB 90-100S IN TELEMONITOR AT THIS TIME, L AC G20, SL, NO S/SX OF INFECTION/INFILTRATION NOTED. ON BILATERAL SOFT WRIST RESTRAINTS D/T EPISODE OF AGGRESSION, NO EPISODES OF AGGRESSION/AGITATION NOTED AT THIS TIME, ALL NEEDS PROVIDED AND SAFETY ENVIRONMENT WELL, BED LOCKED AND IN LOW POSITION, CALL LIGHT W/I REACH, NEW MEDICATION WILL BE ADMINISTERED TONIGHT PER PSYCH MD, WILL CONT TO MONITOR CLOSELY.
[2018-03-26 20:00] VITALS: BP 116/79
[2018-03-26] MEDS: DONEPEZIL 5 MG TABLET PO SCH (21:02)
[2018-03-26] MEDS: QUETIAPINE FUMARATE 25 MG TABLET PO SCH (21:02)
[2018-03-26] MEDS: ENOXAPARIN SODIUM 40 MG/0.4 ML DISP.SYRIN SQ SCH (21:04)
[2018-03-27 04:00] VITALS: BP 126/96
--- NOTE | 2018-03-27 06:48 | NUR ---
RN MS CLOSING NOTES, PATIENT IN BED, SLEEPING AT THIS TIME BUT EASILY AROUSABLE, BREATHING EVEN AND UNLABORED, NO SOB/ ACUTE DISTRESS NOTED AT THIS TIME, L AC G20, SL, NO S/SX OF INFECTION/INFILTRATION NOTED, ON BILATERAL SOFT WRIST RESTRAINTS D/T EPISODE OF AGGRESSION, RELEASED RESTRAINS AND CHECK CIRCULATION PER PROTOCOL AND ORDERED, ONE EPISODE OF AGGRESSION NOTED AND TRYING TO HIT STAFF WHILE PROVIDING CARE, , REDIRECTION OF BEHAVIOR PROVIDED, ALL NEEDS PROVIDED AND SAFE ENVIRONMENT AT ALL TIMES, BED LOCKED AND IN LOW POSITION, CALL LIGHT PLACED W/I REACH, REMAINED STABLE THROUGHOUT THE NIGHT, WILL ENDORSE CONTINUITY OF CARE TO ONCOMING NURSE.
--- NOTE | 2018-03-27 07:00 | NUR ---
RN NOTES RECEIVED PT ON BED , A/Ox1, CONFUSED, COMBATIVE AND TRY TO GET OUT OF BED AT TIMES , ON RA , RESPIRATION EVEN AND UNLABORED, NO SOB NOTED, L AC IV SITE G 20 CLEAN ,DRY AND INTACT, KOURTNEY WRIST PROACTIVE DEVICE ON FOR PT SAFETY , SR UP x3, CALL LIGHT WITHIN EASY REACH, BED LOCKED AND IN LOWEST POSITION, CONTINUE TO MONITOR CLOSELY
[2018-03-27 08:00] VITALS: BP 124/99
[2018-03-27] MEDS: CHOLECALCIFEROL 1,000 UNIT TABLET (VIT D3) PO SCH ×2 (08:21→13:00)
[2018-03-27] MEDS: DILTIAZEM HCL CD 240 MG PO SCH (08:21)
[2018-03-27] MEDS: QUETIAPINE FUMARATE 25 MG TABLET PO SCH (08:22)
[2018-03-27] MEDS: BISOPROLOL FUMARATE 5 MG TABLET PO SCH (08:22)
[2018-03-27] MEDS: AMIODARONE HCL 200 MG TABLET PO SCH (08:23)
[2018-03-27] MEDS: MULTIVITAMINS,THERAGRAN 1 UDTAB TABLET PO SCH (08:23)
[2018-03-27] MEDS: GABAPENTIN 300 MG CAPSULE PO SCH ×2 (08:23→13:00)
--- NOTE | 2018-03-27 10:30 | NUR ---
RN NOTES FLACO IN INTAKE NOTIFIED REGARDING DISCHARGE ORDER.
[2018-03-27 12:00] VITALS: BP 125/87
--- NOTE | 2018-03-27 13:59 | NUR ---
RN NOTES REPORT GIVEN TO [facility]USH[facility] PSYCH CHARGE NURSE .
--- NOTE | 2018-03-27 14:15 | NUR ---
RN NOTES PT DISCHARGE TO [facility] PSYCH PER MD ORDER .
[2018-03-27] MEDS ORDERED: HYDR-552 PO (16:24)
[2018-03-27] MEDS ORDERED: SODI45SP6 NS (16:24)
[2018-03-27] MEDS ORDERED: MAG30ORA PO (16:24)
[2018-03-27] MEDS ORDERED: QUET25TA PO (16:24)
[2018-03-27] MEDS ORDERED: ACET-868 PO (16:24)
[2018-03-27] MEDS ORDERED: ENOX40DI SQ (16:24)
== END 2018-03-27 14:17 | DRG 308 ==
LOC: ER 15:05 → TELE-TD 20:54 → TELE1 03-25 14:44 → MEDSG1 03-26 11:18
PROVIDERS: ADMIT Nurse Practitioner Acute Care; ATTEND Nurse Practitioner Acute Care
DX: I48.2 Chronic atrial fibrillation (principal); G93.41 Metabolic encephalopathy; N17.0 Acute kidney failure with tubular necrosis; E44.1 Mild protein-calorie malnutrition; D68.59 Other primary thrombophilia; F03.91 Unspecified dementia, unspecified severity, with behavioral disturbance; K21.9 Gastro-esophageal reflux disease without esophagitis; F32.9 Major depressive disorder, single episode, unspecified; J45.909 Unspecified asthma, uncomplicated; E88.09 Other disorders of plasma-protein metabolism, not elsewhere classified; Z73.6 Limitation of activities due to disability; I11.0 Hypertensive heart disease with heart failure; I50.9 Heart failure, unspecified; J32.0 Chronic maxillary sinusitis; Z68.21 Body mass index [BMI] 21.0-21.9, adult; F29 Unspecified psychosis not due to a substance or known physiological condition
CPT/HCPCS: 36415; 36600; 70450-TC; 71045-TC; 80048-TC; 80053-TC; 80061-TC; 80076-TC; 80305; 81000-TC; 82803-TC; 83735-TC; 84100-TC; 84443-TC; 84484-TC; 85025-TC; 85730-TC; 87081-TC; 92611-TC; A4606; G0480; J1650; J2060; J3490; J7030; Z7610

== ENCOUNTER 2018-03-27 13:21 | Inpatient (IN) | payer MEDICARE, MEDICAID ==
[~2018-03-27] VITALS: Ht 170.2 cm; Wt 72.6 kg
[~2018-03-27 13:21] MED LIST changes: +AMIO200T4 PO; +CHOL100044 PO; +CLOP75TA15 PO; +FURO-145 PO; +GABA-534 PO; +LORA0.5T PO; +PARO10TA86 PO; +RANI300T4 PO
[2018-03-27 13:30] VITALS: BP 114/65
[2018-03-27] MEDS ORDERED: MAG HYDROX/AL HYDROX/SIMETH 30 ML UDC PO PRN ×2 (15:30→20:30)
[2018-03-27] MEDS ORDERED: MAGNESIUM HYDROXIDE 30 ML UDC PO PRN (15:30)
[2018-03-27] MEDS ORDERED: ACETAMINOPHEN 325 MG TABLET PO PRN ×2 (15:30→20:30)
[2018-03-27] MEDS ORDERED: LORAZEPAM 0.5 MG TABLET PO PRN (15:30)
[2018-03-27 16:15] VITALS: BP 121/89
[2018-03-27] MEDS ORDERED: QUET25TA PO (16:24)
[2018-03-27] MEDS ORDERED: SODI45SP6 NS (16:24)
[2018-03-27] MEDS ORDERED: ENOX40DI SQ (16:24)
[2018-03-27] MEDS ORDERED: HYDR-552 PO (16:24)
[2018-03-27] MEDS ORDERED: ACET-868 PO (16:24)
[2018-03-27] MEDS ORDERED: MAG30ORA PO (16:24)
[2018-03-27 20:06] VITALS: BP 93/46
[2018-03-27] MEDS ORDERED: SALINE NASAL SPRAY 0.65% 1 BOTTLE BOTTLE NS PRN (20:30)
[2018-03-27] MEDS ORDERED: ALBUTEROL FS 2.5 MG/3 ML VIAL.NEB NEB SCH (21:00)
[2018-03-27] MEDS ORDERED: IPRATROPIUM/ALBUTEROL INHALER IH PRN (21:30)
[2018-03-27] MEDS ORDERED: IPRATROPIUM/ALBUTEROL INHALER IH SCH (21:30)
[2018-03-27] MEDS: ENOXAPARIN SODIUM 40 MG/0.4 ML DISP.SYRIN SQ SCH (21:49)
[2018-03-27] MEDS: DONEPEZIL 5 MG TABLET PO SCH (22:24)
[2018-03-27] MEDS ORDERED: IPRATROPIUM NEB FS 0.5 MG/2.5 ML AMPUL.NEB ONE (22:55)
[2018-03-27] MEDS ORDERED: ONDANSETRON 4 MG TAB.RAPDIS ONE (22:55)
[2018-03-27] MEDS: ONDANSETRON 4 MG TAB.RAPDIS SL PRN (23:00)
[2018-03-27] MEDS ORDERED: ONDANSETRON HCL 4 MG/5 ML SOLUTION PO PRN (23:00)
[2018-03-28] MEDS: TEMAZEPAM 7.5 MG CAPSULE PO PRN (01:12)
[2018-03-28] MEDS ORDERED: IPRATROPIUM NEB FS 0.5 MG/2.5 ML AMPUL.NEB NEB PRN (07:30)
[2018-03-28] MEDS ORDERED: ALBUTEROL FS 2.5 MG/0.5 ML VIAL.NEB NEB PRN (07:30)
[2018-03-28 07:43] LABS: ALANINE AMINOTRANSFERASE 27 U/L (12-78); ALBUMIN 3.2 g/dL (3.4-5.0); ALKALINE PHOSPHATASE 65 U/L (46-116); ASPARTATE AMINOTRANSFERASE 17 U/L (15-37); BILIRUBIN,TOTAL 0.9 mg/dL (0.2-1.0); CALCIUM, SERUM 8.9 mg/dL (8.5-10.1); CARBON DIOXIDE 29 mmol/L (21-32); CHLORIDE 106 mmol/L (98-107); CHOLESTEROL 158 mg/dL (<200); GLUCOSE 100 mg/dL (74-106); HDL CHOLESTEROL 41 mg/dL (40-60); LDL 106 mg/dL (0-99); POTASSIUM 3.8 mmol/L (3.5-5.1); SODIUM SERUM 141 mmol/L (136-145); TOTAL PROTEIN, SERUM 7.6 g/dL (6.4-8.2); TRIGLYCERIDES 66 mg/dL (30-150); UREA NITROGEN, BLOOD 17 mg/dL (7-18)
[2018-03-28] MEDS: ALBUTEROL FS 2.5 MG/0.5 ML VIAL.NEB NEB SCH ×3 (07:48→23:27)
[2018-03-28] MEDS: IPRATROPIUM NEB FS 0.5 MG/2.5 ML AMPUL.NEB NEB SCH ×3 (07:48→23:27)
[2018-03-28 08:00] VITALS: BP 111/77
[2018-03-28] MEDS: BISOPROLOL FUMARATE 5 MG TABLET PO SCH (08:52)
[2018-03-28] MEDS: ONDANSETRON 4 MG TAB.RAPDIS SL PRN (08:52)
[2018-03-28] MEDS: DILTIAZEM HCL CD 240 MG PO SCH (08:53)
[2018-03-28] MEDS: AMIODARONE HCL 200 MG TABLET PO SCH (08:53)
[2018-03-28] MEDS: CHOLECALCIFEROL 1,000 UNIT TABLET (VIT D3) PO SCH ×3 (08:53→16:44)
[2018-03-28] MEDS: CLOPIDOGREL BISULFATE 75 MG TABLET PO SCH (08:53)
[2018-03-28 16:00] VITALS: BP 97/56
[2018-03-28] MEDS: PAROXETINE HCL 10 MG TABLET PO SCH (16:44)
[2018-03-28] MEDS: busPIRone 5 MG TABLET PO SCH (16:44)
[2018-03-28] MEDS: DIVALPROEX SODIUM 125 MG TABLET.DR PO SCH ×2 (16:44→16:49)
[2018-03-28] MEDS: ENOXAPARIN SODIUM 40 MG/0.4 ML DISP.SYRIN SQ SCH (21:00)
[2018-03-28] MEDS: DONEPEZIL 5 MG TABLET PO SCH (21:26)
[2018-03-29] MEDS: TEMAZEPAM 7.5 MG CAPSULE PO PRN ×2 (00:17→21:48)
[2018-03-29] MEDS: ALBUTEROL FS 2.5 MG/0.5 ML VIAL.NEB NEB SCH ×3 (07:55→23:53)
[2018-03-29] MEDS: IPRATROPIUM NEB FS 0.5 MG/2.5 ML AMPUL.NEB NEB SCH ×3 (07:55→23:53)
[2018-03-29 08:40] VITALS: BP 124/65
[2018-03-29] MEDS: BISOPROLOL FUMARATE 5 MG TABLET PO SCH (09:13)
[2018-03-29] MEDS: busPIRone 5 MG TABLET PO SCH ×2 (09:13→16:42)
[2018-03-29] MEDS: DILTIAZEM HCL CD 240 MG PO SCH (09:14)
[2018-03-29] MEDS: PAROXETINE HCL 10 MG TABLET PO SCH (09:14)
[2018-03-29] MEDS: CHOLECALCIFEROL 1,000 UNIT TABLET (VIT D3) PO SCH ×3 (09:14→16:42)
[2018-03-29] MEDS: CLOPIDOGREL BISULFATE 75 MG TABLET PO SCH (09:14)
[2018-03-29] MEDS: DIVALPROEX SODIUM 125 MG TABLET.DR PO SCH ×3 (09:14→16:42)
[2018-03-29] MEDS: AMIODARONE HCL 200 MG TABLET PO SCH (09:14)
[2018-03-29 16:00] VITALS: BP 105/55
[2018-03-29 20:00] VITALS: BP 100/55
[2018-03-29] MEDS: ENOXAPARIN SODIUM 40 MG/0.4 ML DISP.SYRIN SQ SCH (21:00)
[2018-03-29] MEDS: DONEPEZIL 5 MG TABLET PO SCH (21:48)
[2018-03-30] MEDS: ALBUTEROL FS 2.5 MG/0.5 ML VIAL.NEB NEB SCH ×3 (07:48→23:30)
[2018-03-30] MEDS: IPRATROPIUM NEB FS 0.5 MG/2.5 ML AMPUL.NEB NEB SCH ×3 (07:49→23:30)
[2018-03-30 08:00] VITALS: BP 121/72
[2018-03-30] MEDS: CHOLECALCIFEROL 1,000 UNIT TABLET (VIT D3) PO SCH ×3 (09:00→16:52)
[2018-03-30] MEDS: PAROXETINE HCL 10 MG TABLET PO SCH (09:00)
[2018-03-30] MEDS: busPIRone 5 MG TABLET PO SCH ×2 (09:00→16:51)
[2018-03-30] MEDS: DIVALPROEX SODIUM 125 MG TABLET.DR PO SCH ×3 (09:01→16:52)
[2018-03-30] MEDS: BISOPROLOL FUMARATE 5 MG TABLET PO SCH (09:01)
[2018-03-30] MEDS: CLOPIDOGREL BISULFATE 75 MG TABLET PO SCH (09:01)
[2018-03-30] MEDS: AMIODARONE HCL 200 MG TABLET PO SCH (09:02)
[2018-03-30] MEDS: DILTIAZEM HCL CD 240 MG PO SCH (09:02)
[2018-03-30 16:04] VITALS: BP 104/63
[2018-03-30 20:00] VITALS: BP 122/83
[2018-03-30] MEDS: ENOXAPARIN SODIUM 40 MG/0.4 ML DISP.SYRIN SQ SCH (21:00)
[2018-03-30] MEDS: DONEPEZIL 5 MG TABLET PO SCH (21:29)
[2018-03-30] MEDS: TEMAZEPAM 7.5 MG CAPSULE PO PRN (21:30)
[2018-03-31] MEDS: IPRATROPIUM NEB FS 0.5 MG/2.5 ML AMPUL.NEB NEB SCH ×3 (07:35→23:21)
[2018-03-31] MEDS: ALBUTEROL FS 2.5 MG/0.5 ML VIAL.NEB NEB SCH ×3 (07:35→23:21)
[2018-03-31 08:06] VITALS: BP 121/77
[2018-03-31] MEDS: PAROXETINE HCL 10 MG TABLET PO SCH (09:00)
[2018-03-31] MEDS: busPIRone 5 MG TABLET PO SCH ×2 (09:00→17:24)
[2018-03-31] MEDS: AMIODARONE HCL 200 MG TABLET PO SCH (09:00)
[2018-03-31] MEDS: CLOPIDOGREL BISULFATE 75 MG TABLET PO SCH (09:00)
[2018-03-31] MEDS: DIVALPROEX SODIUM 125 MG TABLET.DR PO SCH ×3 (09:00→17:24)
[2018-03-31] MEDS: BISOPROLOL FUMARATE 5 MG TABLET PO SCH (09:00)
[2018-03-31] MEDS: DILTIAZEM HCL CD 240 MG PO SCH (09:00)
[2018-03-31] MEDS: CHOLECALCIFEROL 1,000 UNIT TABLET (VIT D3) PO SCH ×3 (09:00→17:24)
[2018-03-31 16:00] VITALS: BP 115/75
[2018-03-31 20:00] VITALS: BP 105/55
[2018-03-31] MEDS: ENOXAPARIN SODIUM 40 MG/0.4 ML DISP.SYRIN SQ SCH (21:00)
[2018-03-31] MEDS: DONEPEZIL 5 MG TABLET PO SCH (22:20)
[2018-04-01] MEDS: IPRATROPIUM NEB FS 0.5 MG/2.5 ML AMPUL.NEB NEB SCH ×3 (07:44→23:17)
[2018-04-01] MEDS: ALBUTEROL FS 2.5 MG/0.5 ML VIAL.NEB NEB SCH ×3 (07:45→23:17)
[2018-04-01 08:00] VITALS: BP 141/87
[2018-04-01] MEDS: DIVALPROEX SODIUM 125 MG TABLET.DR PO SCH ×2 (08:24→17:47)
[2018-04-01] MEDS: PAROXETINE HCL 10 MG TABLET PO SCH (08:24)
[2018-04-01] MEDS: busPIRone 5 MG TABLET PO SCH ×2 (08:24→17:47)
[2018-04-01] MEDS: DILTIAZEM HCL CD 240 MG PO SCH (08:24)
[2018-04-01] MEDS: CLOPIDOGREL BISULFATE 75 MG TABLET PO SCH (08:25)
[2018-04-01] MEDS: AMIODARONE HCL 200 MG TABLET PO SCH (08:25)
[2018-04-01] MEDS: CHOLECALCIFEROL 1,000 UNIT TABLET (VIT D3) PO SCH ×3 (08:25→17:47)
[2018-04-01] MEDS: BISOPROLOL FUMARATE 5 MG TABLET PO SCH (08:26)
[2018-04-01 08:52] VITALS: BP 122/83
[2018-04-01 11:24] LABS: BASOPHILS % (AUTO) 0.2 % (0.0-2.0); EOSINOPHILS % (AUTO) 0.6 % (0.0-6.0); HEMATOCRIT 45 % (39-51); HEMOGLOBIN 14.7 g/dL (13.5-17.5); LYMPHOCYTES # (AUTO) 1.9 /CMM (0.8-4.8); LYMPHOCYTES % (AUTO) 30.6 % (20.0-44.0); MEAN CORPUSCULAR HEMOGLOBIN 31 PG (26.0-33.0); MEAN CORPUSCULAR HGB CONC 33 g/dl (31.0-36.0); MEAN CORPUSCULAR VOLUME 96 fL (80-96); MONOCYTES # (AUTO) 0.4 /CMM (0.1-1.30); MONOCYTES % (AUTO) 6.2 % (2.0-12.0); NEUTROPHILS # (AUTO) 3.8 /CMM (1.8-8.9); NEUTROPHILS % (AUTO) 62.4 % (43.0-81.0); PLATELET COUNT (AUTO) 366 /CMM (150-450); RDW COEFFICIENT OF VARIATION 14.4 (11.5-15.0); WHITE BLOOD COUNT (AUTO) 6.2 K/uL (4.3-11.0)
[2018-04-01 11:40] LABS: ALANINE AMINOTRANSFERASE 42 U/L (12-78); ALBUMIN 3.2 g/dL (3.4-5.0); ALKALINE PHOSPHATASE 66 U/L (46-116); ASPARTATE AMINOTRANSFERASE 21 U/L (15-37); BILIRUBIN,TOTAL 0.7 mg/dL (0.2-1.0); CALCIUM, SERUM 9.1 mg/dL (8.5-10.1); CARBON DIOXIDE 32 mmol/L (21-32); CHLORIDE 109 mmol/L (98-107); GLUCOSE 91 mg/dL (74-106); MAGNESIUM 2.5 mg/dL (1.8-2.4); POTASSIUM 4.1 mmol/L (3.5-5.1); SODIUM SERUM 147 mmol/L (136-145); TOTAL PROTEIN, SERUM 7.5 g/dL (6.4-8.2); UREA NITROGEN, BLOOD 28 mg/dL (7-18)
[2018-04-01 20:00] VITALS: BP 97/55
[2018-04-01] MEDS: TEMAZEPAM 7.5 MG CAPSULE PO PRN (21:32)
[2018-04-01] MEDS: DONEPEZIL 5 MG TABLET PO SCH (21:32)
[2018-04-01] MEDS: ENOXAPARIN SODIUM 40 MG/0.4 ML DISP.SYRIN SQ SCH (21:33)
[2018-04-02 08:00] VITALS: BP 109/69
[2018-04-02] MEDS: IPRATROPIUM NEB FS 0.5 MG/2.5 ML AMPUL.NEB NEB SCH ×3 (08:15→22:51)
[2018-04-02] MEDS: ALBUTEROL FS 2.5 MG/0.5 ML VIAL.NEB NEB SCH ×3 (08:15→22:51)
[2018-04-02] MEDS: CLOPIDOGREL BISULFATE 75 MG TABLET PO SCH (08:46)
[2018-04-02] MEDS: PAROXETINE HCL 10 MG TABLET PO SCH (08:46)
[2018-04-02] MEDS: busPIRone 5 MG TABLET PO SCH ×2 (08:46→17:33)
[2018-04-02] MEDS: DIVALPROEX SODIUM 125 MG TABLET.DR PO SCH ×2 (08:46→17:33)
[2018-04-02] MEDS: DILTIAZEM HCL CD 240 MG PO SCH (08:47)
[2018-04-02] MEDS: BISOPROLOL FUMARATE 5 MG TABLET PO SCH (08:48)
[2018-04-02] MEDS: CHOLECALCIFEROL 1,000 UNIT TABLET (VIT D3) PO SCH ×3 (08:48→17:33)
[2018-04-02] MEDS: AMIODARONE HCL 200 MG TABLET PO SCH (08:49)
[2018-04-02 16:00] VITALS: BP 111/55
[2018-04-02 19:53] VITALS: BP 96/60
[2018-04-02] MEDS: DONEPEZIL 5 MG TABLET PO SCH (20:49)
[2018-04-02] MEDS: TEMAZEPAM 7.5 MG CAPSULE PO PRN (20:49)
[2018-04-02] MEDS: ENOXAPARIN SODIUM 40 MG/0.4 ML DISP.SYRIN SQ SCH (20:53)
[2018-04-03] MEDS: ALBUTEROL FS 2.5 MG/0.5 ML VIAL.NEB NEB SCH ×3 (07:30→22:56)
[2018-04-03] MEDS: IPRATROPIUM NEB FS 0.5 MG/2.5 ML AMPUL.NEB NEB SCH ×3 (07:30→22:56)
[2018-04-03 08:00] VITALS: BP 109/55
[2018-04-03] MEDS: CHOLECALCIFEROL 1,000 UNIT TABLET (VIT D3) PO SCH ×3 (08:19→16:21)
[2018-04-03] MEDS: DIVALPROEX SODIUM 125 MG TABLET.DR PO SCH ×2 (08:19→16:21)
[2018-04-03] MEDS: CLOPIDOGREL BISULFATE 75 MG TABLET PO SCH (08:19)
[2018-04-03] MEDS: busPIRone 5 MG TABLET PO SCH ×2 (08:19→16:21)
[2018-04-03] MEDS: DILTIAZEM HCL CD 240 MG PO SCH (08:19)
[2018-04-03] MEDS: AMIODARONE HCL 200 MG TABLET PO SCH (08:20)
[2018-04-03] MEDS: BISOPROLOL FUMARATE 5 MG TABLET PO SCH (08:20)
[2018-04-03] MEDS: PAROXETINE HCL 10 MG TABLET PO SCH (08:20)
[2018-04-03 16:00] VITALS: BP 126/80
[2018-04-03 20:17] VITALS: BP 123/90
[2018-04-03] MEDS: DONEPEZIL 5 MG TABLET PO SCH (21:28)
[2018-04-03] MEDS: ENOXAPARIN SODIUM 40 MG/0.4 ML DISP.SYRIN SQ SCH (21:30)
[2018-04-04] MEDS: TEMAZEPAM 7.5 MG CAPSULE PO PRN (01:09)
[2018-04-04 08:00] VITALS: BP 109/61
[2018-04-04] MEDS: IPRATROPIUM NEB FS 0.5 MG/2.5 ML AMPUL.NEB NEB SCH ×3 (08:11→22:55)
[2018-04-04] MEDS: ALBUTEROL FS 2.5 MG/0.5 ML VIAL.NEB NEB SCH ×3 (08:11→22:55)
[2018-04-04] MEDS: AMIODARONE HCL 200 MG TABLET PO SCH ×2 (08:46→09:00)
[2018-04-04] MEDS: CHOLECALCIFEROL 1,000 UNIT TABLET (VIT D3) PO SCH ×4 (08:46→17:41)
[2018-04-04] MEDS: CLOPIDOGREL BISULFATE 75 MG TABLET PO SCH ×2 (08:46→09:00)
[2018-04-04] MEDS: DIVALPROEX SODIUM 125 MG TABLET.DR PO SCH ×3 (08:47→17:41)
[2018-04-04] MEDS: DILTIAZEM HCL CD 240 MG PO SCH ×2 (08:47→09:00)
[2018-04-04] MEDS: PAROXETINE HCL 10 MG TABLET PO SCH ×2 (08:47→09:00)
[2018-04-04] MEDS: BISOPROLOL FUMARATE 5 MG TABLET PO SCH ×2 (08:47→09:00)
[2018-04-04] MEDS: busPIRone 5 MG TABLET PO SCH ×3 (08:48→17:41)
[2018-04-04 10:42] LABS: BASOPHILS % (AUTO) 0.5 % (0.0-2.0); EOSINOPHILS % (AUTO) 0.4 % (0.0-6.0); HEMATOCRIT 46 % (39-51); LYMPHOCYTES # (AUTO) 1.6 /CMM (0.8-4.8); LYMPHOCYTES % (AUTO) 24.3 % (20.0-44.0); MEAN CORPUSCULAR HEMOGLOBIN 31 PG (26.0-33.0); MEAN CORPUSCULAR HGB CONC 33 g/dl (31.0-36.0); MEAN CORPUSCULAR VOLUME 96 fL (80-96); MONOCYTES # (AUTO) 0.4 /CMM (0.1-1.30); NEUTROPHILS # (AUTO) 4.4 /CMM (1.8-8.9); NEUTROPHILS % (AUTO) 68.8 % (43.0-81.0); PLATELET COUNT (AUTO) 365 /CMM (150-450); RDW COEFFICIENT OF VARIATION 13.9 (11.5-15.0); RED BLOOD CELL COUNT(AUTO) 4.76 MIL/uL (4.5-6.0); WHITE BLOOD COUNT (AUTO) 6.4 K/uL (4.3-11.0)
[2018-04-04 11:04] LABS: CARBON DIOXIDE 29 mmol/L (21-32); CHLORIDE 112 mmol/L (98-107); GLUCOSE 99 mg/dL (74-106); POTASSIUM 3.6 mmol/L (3.5-5.1); SODIUM SERUM 151 mmol/L (136-145); UREA NITROGEN, BLOOD 29 mg/dL (7-18)
[2018-04-04] MEDS ORDERED: IV D5W 500 ML IV ONE (14:00)
[2018-04-04 16:00] VITALS: BP 110/58
[2018-04-04 20:00] VITALS: BP 107/82
[2018-04-04] MEDS: DONEPEZIL 5 MG TABLET PO SCH (21:27)
[2018-04-04] MEDS: ENOXAPARIN SODIUM 40 MG/0.4 ML DISP.SYRIN SQ SCH (21:30)
[2018-04-05 06:37] LABS: CALCIUM, SERUM 8.7 mg/dL (8.5-10.1); CARBON DIOXIDE 34 mmol/L (21-32); CHLORIDE 103 mmol/L (98-107); CREATININE 1.2 mg/dL (0.6-1.3); GLUCOSE 100 mg/dL (74-106); POTASSIUM 3.7 mmol/L (3.5-5.1); SODIUM SERUM 142 mmol/L (136-145); UREA NITROGEN, BLOOD 23 mg/dL (7-18)
[2018-04-05 07:39] VITALS: BP 107/92
[2018-04-05] MEDS: ALBUTEROL FS 2.5 MG/0.5 ML VIAL.NEB NEB SCH (07:45)
[2018-04-05] MEDS: IPRATROPIUM NEB FS 0.5 MG/2.5 ML AMPUL.NEB NEB SCH (07:45)
[2018-04-05 08:00] VITALS: BP 107/92
[2018-04-05] MEDS: DILTIAZEM HCL CD 240 MG PO SCH (08:24)
[2018-04-05] MEDS: AMIODARONE HCL 200 MG TABLET PO SCH (08:52)
[2018-04-05] MEDS: BISOPROLOL FUMARATE 5 MG TABLET PO SCH (08:53)
[2018-04-05] MEDS: PAROXETINE HCL 10 MG TABLET PO SCH (08:56)
[2018-04-05] MEDS: busPIRone 5 MG TABLET PO SCH (08:56)
[2018-04-05] MEDS: CHOLECALCIFEROL 1,000 UNIT TABLET (VIT D3) PO SCH ×2 (08:56→09:00)
[2018-04-05] MEDS: DIVALPROEX SODIUM 125 MG TABLET.DR PO SCH (08:57)
[2018-04-05] MEDS: CLOPIDOGREL BISULFATE 75 MG TABLET PO SCH (08:57)
[2018-04-05 11:40] VITALS: BP 103/70
== END 2018-04-05 11:45 | DRG 885 ==
LOC: GPS 13:21 → GPSOV2 03-28 20:13 → GPS 03-28 20:29 → GPSOV2 04-04 18:53
PROVIDERS: ADMIT Psychiatry & Neurology Psychiatry; ATTEND Nurse Practitioner Acute Care
DX: F39 Unspecified mood [affective] disorder (principal); I11.0 Hypertensive heart disease with heart failure; D68.59 Other primary thrombophilia; E44.0 Moderate protein-calorie malnutrition; E87.0 Hyperosmolality and hypernatremia; F03.91 Unspecified dementia, unspecified severity, with behavioral disturbance; I48.91 Unspecified atrial fibrillation; I50.9 Heart failure, unspecified; K21.9 Gastro-esophageal reflux disease without esophagitis; J45.909 Unspecified asthma, uncomplicated; E86.1 Hypovolemia; F41.9 Anxiety disorder, unspecified; E88.09 Other disorders of plasma-protein metabolism, not elsewhere classified; Z68.25 Body mass index [BMI] 25.0-25.9, adult; M62.50 Muscle wasting and atrophy, not elsewhere classified, unspecified site; F29 Unspecified psychosis not due to a substance or known physiological condition
CPT/HCPCS: 36415; 80048-TC; 80053-TC; 80061-TC; 82962-TC; 83735-TC; 85025-TC; 87081-TC; 92521; 92526; 94760-TC; 97110-TC; 97116-TC; 97530-TC; J1650; J7060; Q0162